=== PATIENT | female | born 1955 | race Caucasian/White ===

== ENCOUNTER 2024-04-21 08:57 | Emergency (ER) | payer BC, MEDICAID ==
[~2024-04-21] VITALS: Ht 167.6 cm; Wt 52.4 kg
[2024-04-21 09:01] VITALS: PULSE 94; TEMP 99.4
[2024-04-21 12:18] VITALS: BP 167/87; RESP 18; O2SAT 98
== END 2024-04-21 13:19 | disposition home or self-care (01) ==
LOC: ER 08:58
DX: B34.9 Viral infection, unspecified (principal); Z88.2 Allergy status to sulfonamides; Z88.1 Allergy status to other antibiotic agents; Z20.822 Contact with and (suspected) exposure to COVID-19
CPT/HCPCS: 36415; 87502; 87503; 87811; 99283

== ENCOUNTER 2024-10-31 14:40 | Emergency (ER) | payer MEDICARE, MEDICAID ==
[~2024-10-31] VITALS: Ht 167.6 cm; Wt 63.6 kg
--- NOTE | 2024-10-31 16:25 | Physician Documentation ---
History of Present Illness ~ Chief Complaint: Mechanical Fall Stated Complaint: FALL Time Seen by MD: 15:50 Source: patient Mode of Arrival: EMS, Ambulatory Exam Limitations: no limitations HPI In with a mechanical fall at [facility] today. No loss of consciousness. Does not take blood thinners. Here with swelling and bruising to the left eye. Mild posterior neck pain. C-collar in place. Denies any significant medical history. Tetanus within 5 Years?: Yes Medication Reconciliation Allergies: Coded Allergies: sulfamethoxazole (Verified Allergy, Unknown, 04/21/24) trimethoprim (Verified Allergy, Unknown, 04/21/24) Review of Systems All Other Systems at this time: Reviewed and Negative Physical Exam Vital Signs: Temperature: 97.7, Source: Temporal, Heart Rate: 82, Respiratory Rate: 12, BP: 165/115, Pulse Oximetry: 98, Weight: 63.640 Oxygen Flow Rate: 0 General Appearance: alert, WD/WN Head Large hematoma to the left eye Face: swelling Eye Lid: edema Ears: normal inspection Nose: normal inspection Mouth: other (Trace swelling to the left lower lip) Neck: other (C-collar in place) Respiratory: lungs clear, normal breath sounds Chest: normal inspection, non-tender Cardiovascular: normal peripheral pulses, regular rate, rhythm, no edema, no murmur Gastrointestinal: normal palpation, non-tender Back: no vertebral tenderness Pelvis: normal Skin: warm/dry, normal color Neurologic: oriented x4 Motor / Sensory: no motor deficit, no sensory deficit Cerebellar function exam: normal Thoughts/Hallucinations: normal thought pattern Affect: appropriate Best Eye Response: (4) open spontaneously Best Verbal Response: (5) oriented Best Motor Response: (6) obeys commands Progress Progress Note Patient in with mechanical fall. Head, neck and maxillofacial CT negative for any fracture or bleed. Does have hematoma over left eye. Discharging home in good condition with care instructions. Recommending ice packs. Follow up with PCP in a week for recheck. Return here if new or worsening symptoms prior to follow-up. Results/Orders Results/Orders Orders - ALEJANDRO WATERS MD Ct Head (10/31/24 16:25) Ct Facial Bones/Soft Tissue (10/31/24 16:25) Ct Cervical Spine (10/31/24 16:25) Completed Orders - ALEJANDRO WATERS MD Ct Head (10/31/24 16:25) Ct Facial Bones/Soft Tissue (10/31/24 16:25) Ct Cervical Spine (10/31/24 16:25) Vital Signs 10/31/24 10/31/24 10/31/24 10/31/24 14:59 15:10 15:15 15:30 Temp 97.7 Pulse 86 85 82 Resp 17 16 14 12 B/P (MAP) 164/89 166/118 (134) 165/115 (132) Pulse Ox 98 100 98 O2 Flow Rate 0 0 0 10/31/24 10/31/24 17:30 17:39 Temp 97.9 Pulse 88 82 Resp 16 10 B/P (MAP) 187/97 (127) Pulse Ox 96 97 Departure Impression: Primary Impression: Hematoma of left eye region Condition: Stable Discharge Instructions: Hematoma, [id number] Additional Instructions: By an ice pack several times a day over the next couple of days. Follow up with your doctor in a week for a recheck. Return here if new or worsening symptoms prior to follow-up. Referrals: NO PRIMARY CARE PROVIDER (PCP) Education Educated: Patient Educated regarding: diagnosis, treatment, need for follow up Signature Scribe Signature: No scribe used Attestation: No scribe used ALEJANDRO WATERS MD Oct 31, 2024 16:25
--- NOTE | 2024-10-31 16:42 | RADIOLOGY REPORT ---
CLINICAL HISTORY: fall TECHNIQUE: Helical imaging carried out from skull base to vertex without intravenous contrast. This e xam was performed according to our departmental dose optimization program. Up-to-date CT equipment an d radiation dose reduction techniques are utilized as appropriate. CTDIVol: 72.85 mGy DLP: 1337.24 mGy-cm WID: COMPARISON: None FINDINGS: Large left periorbital and forehead contusion/hematoma. Generalized cerebral volume loss with concordant prominence of the subarachnoid spaces and ventricles . There is ovxg-ro-ykwaeldu patchy low attenuation in the cerebral white matter consistent with nonsp ecific white matter disease. There is no midline shift or mass effect. The sanchez white matter interfa sloan are maintained. The basal cisterns are patent. There is no evidence of acute intracranial hemorrh age or extra-axial fluid collection. The mastoid air cells and visualized paranasal sinuses are well- aerated. IMPRESSION: No acute intracranial abnormality. Large left periorbital and forehead contusion/ hematoma. Generalized cerebral volume loss and [id number] chronic microvascular ischemic change.
--- NOTE | 2024-10-31 16:45 | RADIOLOGY REPORT ---
CT maxillofacial HISTORY: fall TECHNIQUE: Serial axial images were performed through the facial bones and reformatted in sagittal an d coronal planes. FINDINGS:On axial images no fractures of the mandible, zygomatic arches, orbital lateral or medial or bital santoro. On sagittal images no fractures of the anterior maxillary spine or nasal bone. No fractures of the an terior posterior santoro of the paranasal sinuses On coronal images no fractures of the superior or inferior santoro of the orbits. The temporomandibular joints are symmetrically aligned. On soft tissue windows no soft tissue injury is present. There is marked preseptal soft tissue swelling over the left orbit. The globes are. IMPRESSION: 1. Marked soft tissue swelling overlying the left eye without fracture Computed Tomographic Radiation Dosimetry Report: Total CTDI vol = 72 mGy Total DLP = 1333 mGy-cm All CT scans at this medical facility are performed using dose modulation techniques as appropriate t o a performed exam including the following: Automated exposure control was utilized; adjustment of the MA and/or KvP according to patient size; a nd use of iterative reconstruction technique.
--- NOTE | 2024-10-31 17:04 | RADIOLOGY REPORT ---
Indication: fall Technique: CT axial images of the cervical spine are obtained without contrast. Coronal and sagittal reformats were obtained. Radiation Dose Information: CTDI volume is 21 mGy. Dose-length product is 470 mGy*cm Comparison: None FINDINGS: The cervical vertebral body heights are maintained. Straightening of normal cervical spine curvature . Anterior fusion at C4-5 and C7-T1. Interbody disc spacers at C4-5, C5-6, C7-T1.. There is moderat e to severe multilevel disc space narrowing. 3 mm anterolisthesis of C6 upon C7.3 mm anterolisthesis of T1 upon T2. No prevertebral edema. Facet articulations demonstrate moderate to severe facet hypert rophic changes. . The atlantooccipital, atlantoaxial articulations are intact. Moderate to severe mul tilevel neural foraminal stenosis. IMPRESSION: Moderate to severe cervical degenerative disc disease. Anterior fusion changes as described above. Moderate to severe facet hypertrophic changes.
[2024-10-31 17:30] VITALS: TEMP 97.9
[2024-10-31 17:39] VITALS: BP 187/97; PULSE 82; RESP 10; O2SAT 97
== END 2024-10-31 17:40 | disposition home or self-care (01) ==
LOC: ER 14:40
DX: S05.12XA Contusion of eyeball and orbital tissues, left eye, initial encounter (principal); Z88.1 Allergy status to other antibiotic agents; Z88.2 Allergy status to sulfonamides; W01.0XXA Fall on same level from slipping, tripping and stumbling without subsequent striking against object, initial encounter; Y93.89 Activity, other specified; Y92.512 Supermarket, store or market as the place of occurrence of the external cause; Y99.8 Other external cause status
CPT/HCPCS: 70450; 70486; 72125; 99284; L0172